=== PATIENT | female | born 1990 | race Caucasian/White ===

== ENCOUNTER → 2020-10-17 | Outpatient (CLI) | payer BC ==
[~2020-10-17] MED LIST: BIRTH CONTROL PILLS; SULTRIDS PO
[2020-10-20 01:11] LABS: CHLAMYDIA BY NAA Negative (Negative); GONOCOCCUS BY NAA Negative (Negative); TRICH VAG BY NAA Negative (Negative)
== END | disposition home or self-care (01) ==
LOC: LAB SHORT 15:54 → LAB 15:54
PROVIDERS: Physician Assistant Medical
DX: N92.6 Irregular menstruation, unspecified (principal)
CPT/HCPCS: 87491; 87591; 87661